=== PATIENT | female | born 1990 ===

== ENCOUNTER 2019-10-29 08:15 | Inpatient (IN) | payer OTHER ==
[~2019-10-29] VITALS: Ht 167.6 cm; Wt 3.6 kg
[2019-11-20] MEDS ORDERED: ACYCLOVIR SODI500 MG PO (20:39)
[2019-11-20] MEDS ORDERED: PRENATAL TABLE1 EAC1 PO (20:39)
[2019-11-24] MEDS ORDERED: IBUPROFEN800 MG PO (13:09)
[2019-11-24] MEDS ORDERED: DOCUSATE SODIU100 MG PO (13:09)
[2019-11-24] MEDS ORDERED: TYLenol Extra Streng PO (13:09)
[2019-11-24] MEDS ORDERED: SIMETHICONE125 M1 PO (13:09)
== END 2019-11-24 13:10 | disposition home or self-care (01) | DRG 788 ==
LOC: LDR 11-20 20:17 → O/R 11-21 13:08 → OB/GYN 11-21 15:16
PROVIDERS: ADMIT Obstetrics & Gynecology; ATTEND Obstetrics & Gynecology
PROC: 4A1HXFZ Monitoring of Products of Conception, Cardiac Rhythm, External Approach (ICD-10-PCS; 2019-11-21)
PROC: 3E033VJ Introduction of Other Hormone into Peripheral Vein, Percutaneous Approach (ICD-10-PCS; 2019-11-21)
PROC: 10D00Z1 Extraction of Products of Conception, Low, Open Approach (ICD-10-PCS; principal; 2019-11-21 11:00)
DX: O65.4 Obstructed labor due to fetopelvic disproportion, unspecified (principal); Z3A.39 39 weeks gestation of pregnancy; Z37.0 Single live birth; O62.1 Secondary uterine inertia

== ENCOUNTER 2020-09-10 22:57 | Emergency (ER) | payer OTHER ==
[~2020-09-10] VITALS: Ht 167.6 cm; Wt 63.5 kg
[~2020-09-10 22:57] MED LIST: ACYCLOVIR SODI500 MG PO; DOCUSATE SODIU100 MG PO; IBUPROFEN800 MG PO; PRENATAL TABLE1 EAC1 PO; SIMETHICONE125 M1 PO; TYLenol Extra Streng PO
[2020-09-11] MEDS ORDERED: MACRODANTIN100 M1 PO (03:42)
== END 2020-09-11 03:52 | disposition home or self-care (01) ==
LOC: ER 22:57
DX: O20.0 Threatened abortion (principal)